=== PATIENT | male | born 1955 | race Caucasian/White ===

== ENCOUNTER → 2017-04-20 | Outpatient (CLI) | payer OTHER ==
[~2017-04-20] MED LIST: BACL20TA PO; BUDE10.2 INH; DILT120C56 PO; DILT120C75 PO; ETOD500T PO; HYDR-3307 PO; LISI5TAB7 PO; MELO-184 PO; METF500T4 PO; PREG25CA PO; RIVA20TA PO; SULI200T2 PO
== END | disposition home or self-care (01) ==
LOC: CFH 13:44
PROVIDERS: ATTEND Internal Medicine
DX: J44.9 Chronic obstructive pulmonary disease, unspecified (principal); I25.10 Atherosclerotic heart disease of native coronary artery without angina pectoris
CPT/HCPCS: 71250

== ENCOUNTER → 2017-07-27 | Outpatient (CLI) | payer OTHER ==
[~2017-07-27] MED LIST changes: +CARV6.252 PO; +LOSA25TA5 PO; -MELO-184 PO; +MELO15TA24 PO; +MORPHINE PO; +OXYC10TA6 PO; +SIMV20TA3 PO; +TAMS-11 PO
[2017-07-27 16:13] LABS: HEMOGLOBIN 14.8 g/dL (13.7-18.0); WHITE BLOOD COUNT 11.2 x10^3/uL (3.4-10)
[2017-07-27 16:28] LABS: BLOOD UREA NITROGEN 17 mg/dL (7-18)
[2017-07-27 16:33] LABS: ASPARTATE AMINO TRANSFERASE 8 U/L (15-37)
== END ==
LOC: STAR 14:30
PROVIDERS: ATTEND Neurological Surgery
DX: Z01.818 Encounter for other preprocedural examination (principal); M48.061 Spinal stenosis, lumbar region without neurogenic claudication; R94.31 Abnormal electrocardiogram [ECG] [EKG]; I50.9 Heart failure, unspecified; J81.1 Chronic pulmonary edema; I51.7 Cardiomegaly; J92.9 Pleural plaque without asbestos
CPT/HCPCS: 36415; 71020; 80053; 81001; 85025; 85610; 85730; 93005